=== PATIENT | female | born 1985 | race Caucasian/White ===

== ENCOUNTER 2016-08-27 09:41 | Emergency (ER) | payer MEDICAID ==
[~2016-08-27] VITALS: Ht 167.6 cm; Wt 85.0 kg
[2016-08-27] MEDS ORDERED: KETOROLAC TROMETHAMINE 60 MG/2 ML VIAL IM ONE (11:45)
[2016-08-27 12:15] VITALS: BP 133/64
== END 2016-08-27 12:15 | disposition home or self-care (01) ==
LOC: EMS 09:42
DX: M75.41 Impingement syndrome of right shoulder (principal); M75.101 Unspecified rotator cuff tear or rupture of right shoulder, not specified as traumatic
CPT/HCPCS: 73030; 96372; 99284; J1885

== ENCOUNTER 2017-04-22 12:33 | Emergency (ER) | payer MEDICAID, OTHER ==
[~2017-04-22] VITALS: Ht 167.6 cm; Wt 88.0 kg
[2017-04-22] MEDS ORDERED: IBUPROFEN 800 MG TABLET PO ONE (14:45)
[2017-04-22 16:36] VITALS: BP 133/70
== END 2017-04-22 17:34 | disposition home or self-care (01) ==
LOC: EMS 12:34
DX: S93.402A Sprain of unspecified ligament of left ankle, initial encounter (principal); X58.XXXA Exposure to other specified factors, initial encounter; Y93.89 Activity, other specified; Y92.89 Other specified places as the place of occurrence of the external cause; Y99.8 Other external cause status
CPT/HCPCS: 99284